=== PATIENT | female | born 1970 | race African-American/Black ===

== ENCOUNTER 2022-05-20 22:18 | Observation (INO) | payer OTHER ==
[2022-05-20 23:37] LABS: BASO % 0.1 % (0-2.0); HEMATOCRIT 35.9 % (32.4-45.2); HEMOGLOBIN 11.8 GM/dL (10.7-15.3); LYMPH % 19.4 % (8-40); MCH 24.2 pg (25.7-33.7); MCHC 32.8 g/dl (32.0-36.0); MEAN CELL VOLUME 73.6 fl (80-96); MEAN PLT VOLUME 9.1 fl (7.5-11.1); NEUT % 72.5 % (42.8-82.8); PLATELET COUNT 258 10^3/uL (134-434); RBC 4.88 M/mm3 (3.60-5.2); RDW 15.6 % (11.6-15.6); WHITE BLOOD COUNT 6.6 K/mm3 (4.0-10.0)
[2022-05-21] LABS: BLOOD UREA NITROGEN 16.6 mg/dL (7-18); CALCIUM 9.5 mg/dL (8.5-10.1)
[2022-05-21 00:03] LABS: CREATININE 0.8 mg/dL (0.55-1.3)
[2022-05-21 00:05] LABS: BILIRUBIN,TOTAL 0.7 mg/dL (0.2-1); TOT PROT 7.3 g/dl (6.4-8.2)
[2022-05-21 03:51] VITALS: BMI 41.9
[2022-05-21] MEDS: INSULIN SLIDING SCALE (NOVOLOG) 1 VIAL SQ SCH ×4 (06:46→21:49)
[2022-05-21 08:09] LABS: BASO % 0.1 % (0-2.0); HEMATOCRIT 33.7 % (32.4-45.2); HEMOGLOBIN 11.3 GM/dL (10.7-15.3); LYMPH % 21.9 % (8-40); MCH 24.4 pg (25.7-33.7); MCHC 33.4 g/dl (32.0-36.0); MEAN CELL VOLUME 73.1 fl (80-96); MEAN PLT VOLUME 10.6 fl (7.5-11.1); MONO % 8.3 % (3.8-10.2); NEUT % 69.7 % (42.8-82.8); PLATELET COUNT 253 10^3/uL (134-434); RBC 4.62 M/mm3 (3.60-5.2); RDW 15.1 % (11.6-15.6); WHITE BLOOD COUNT 5.8 K/mm3 (4.0-10.0)
[2022-05-21 08:23] LABS: CALCIUM 9.6 mg/dL (8.5-10.1)
[2022-05-21 08:24] LABS: ALBUMIN 3.8 g/dl (3.4-5.0); BLOOD UREA NITROGEN 15.5 mg/dL (7-18); MAGNESIUM 1.8 mg/dL (1.8-2.4)
[2022-05-21 08:28] LABS: BILIRUBIN,TOTAL 0.7 mg/dL (0.2-1); CREATININE 0.6 mg/dL (0.55-1.3); PHOSPHOROUS 4.5 mg/dL (2.5-4.9); TOT PROT 6.9 g/dl (6.4-8.2)
[2022-05-21] MEDS: ENOXAPARIN NA (PORCINE) 40 MG/0.4 ML DISP.SYRIN SQ SCH (09:44)
[2022-05-21] MEDS: amLODIPine BESYLATE 5 MG TABLET (FP) PO SCH (10:43)
[2022-05-21] MEDS ORDERED: SODIUM CHLORIDE 1,000 ML IV SCH ×3 (12:15→18:11)
[2022-05-21] MEDS ORDERED: LORATADINE 10 MG TABLET PO ONE (14:04)
[2022-05-21] MEDS ORDERED: INSULIN (NOVOLOG) ASPART 100 UNITS/ML 10ML VIAL ONE (16:30)
[2022-05-22] MEDS: INSULIN SLIDING SCALE (NOVOLOG) 1 VIAL SQ SCH ×2 (06:17→11:26)
[2022-05-22] MEDS ORDERED: LEVOTHYROXINE NA 100 MCG TABLET (FP) PO SCH (07:00)
[2022-05-22] MEDS ORDERED: LEVOTHYROXINE NA 150 MCG TABLET PO SCH (07:00)
[2022-05-22] MEDS: ENOXAPARIN NA (PORCINE) 40 MG/0.4 ML DISP.SYRIN SQ SCH (09:00)
[2022-05-22] MEDS: amLODIPine BESYLATE 5 MG TABLET (FP) PO SCH (09:00)
[2022-05-22 09:15] LABS: BASO % 0.1 % (0-2.0); HEMATOCRIT 34.7 % (32.4-45.2); HEMOGLOBIN 11.7 GM/dL (10.7-15.3); LYMPH % 16.9 % (8-40); MCH 24.4 pg (25.7-33.7); MCHC 33.5 g/dl (32.0-36.0); MEAN CELL VOLUME 72.7 fl (80-96); MEAN PLT VOLUME 9.8 fl (7.5-11.1); MONO % 7.7 % (3.8-10.2); NEUT % 75.3 % (42.8-82.8); PLATELET COUNT 200 10^3/uL (134-434); RBC 4.78 M/mm3 (3.60-5.2); RDW 15.3 % (11.6-15.6)
[2022-05-22 09:55] VITALS: BP 137/74; PULSE 86; RESP 18; TEMP 98.5
[2022-05-22 10:01] LABS: ALBUMIN 3.6 g/dl (3.4-5.0); BLOOD UREA NITROGEN 15.8 mg/dL (7-18); CALCIUM 8.8 mg/dL (8.5-10.1)
[2022-05-22 10:02] LABS: MAGNESIUM 1.7 mg/dL (1.8-2.4)
[2022-05-22 10:04] LABS: CREATININE 0.5 mg/dL (0.55-1.3)
[2022-05-22 10:05] LABS: BILIRUBIN,TOTAL 0.6 mg/dL (0.2-1); TOT PROT 6.8 g/dl (6.4-8.2)
[2022-05-22 10:07] LABS: PHOSPHOROUS 4.1 mg/dL (2.5-4.9)
== END 2022-05-22 13:19 | disposition home or self-care (01) ==
LOC: JER 22:18 → JERBED 23:17 → J4W 05-21 03:33
PROVIDERS: ADMIT Internal Medicine; ATTEND Internal Medicine
PROC: 3E0337Z Introduction of Electrolytic and Water Balance Substance into Peripheral Vein, Percutaneous Approach (ICD-10-PCS; principal; 2022-05-20)
PROC: 3E023GC Introduction of Other Therapeutic Substance into Muscle, Percutaneous Approach (ICD-10-PCS; 2022-05-20)
DX: R00.2 Palpitations (principal); E03.9 Hypothyroidism, unspecified; Z90.89 Acquired absence of other organs; E87.8 Other disorders of electrolyte and fluid balance, not elsewhere classified; E11.9 Type 2 diabetes mellitus without complications; I10 Essential (primary) hypertension; E66.01 Morbid (severe) obesity due to excess calories; Z68.41 Body mass index [BMI] 40.0-44.9, adult
CPT/HCPCS: 0241U-QW; 36415; 71045-TC-FY; 80053; 80061; 82962; 83036; 83735; 83880; 84100; 84436; 84443; 84480; 84484; 85025; 93005; 93010; 99285-25; G0378

== ENCOUNTER 2023-07-28 11:01 | Emergency (ER) | payer OTHER ==
[2023-07-28 11:07] VITALS: RESP 18; BMI 41.7
[2023-07-28] MEDS ORDERED: CYCLOBENZAPRINE HCL 5 MG TABLET ONE (12:33)
[2023-07-28] MEDS ORDERED: ACETAMINOPHEN 325 MG TABLET (FP) ONE (12:33)
[2023-07-28] MEDS: ACETAMINOPHEN 325 MG TABLET (FP) PO ONE (12:38)
[2023-07-28] MEDS: CYCLOBENZAPRINE HCL 10 MG TABLET (FP) PO ONE (12:38)
[2023-07-28 15:09] VITALS: BP 115/71; PULSE 67; TEMP 98.4
== END 2023-07-28 15:49 | disposition home or self-care (01) ==
LOC: JER 11:01
DX: M25.551 Pain in right hip (principal); W01.198A Fall on same level from slipping, tripping and stumbling with subsequent striking against other object, initial encounter; Y92.009 Unspecified place in unspecified non-institutional (private) residence as the place of occurrence of the external cause; Y93.01 Activity, walking, marching and hiking
CPT/HCPCS: 71046-TC-FY; 71120-TC-FY; 73502-TC-RT-FY; 99284-25